=== PATIENT | male | born 2000 | race Two or more races ===

== ENCOUNTER 2024-10-23 03:36 | Emergency (ER) | payer BC, MEDICAID, SELFPAY ==
[2024-10-23 03:37] VITALS: BMI 23.1
[2024-10-23 04:03] VITALS: BP 141/92; PULSE 57; RESP 18; TEMP 36.8; O2SAT 98
--- NOTE | 2024-10-23 04:19 | PD.EDRME ---
Rapid Medical Screening Exam RME Arrival date/time: 10/23/24 03:36 23 yo m present to ED for c/o hematuria/discharge I have greeted and performed a focused initial assessment of this patient. A comprehensive ED assessment and evaluation of the patient, analysis of all test results, and completion of the medical decision making process will be conducted by additional ED providers. Chief Complaint: Medical Clearance Time Seen by Provider: 10/23/24 04:07 Vital signs: Vital Signs Temperature 98.3 F 10/23/24 04:03 Pulse Rate 57 L 10/23/24 04:03 Respiratory Rate 18 10/23/24 04:03 Blood Pressure 141/92 H 10/23/24 04:03 Pulse Oximetry (%) 98 10/23/24 04:03 Oxygen Delivery Method Room Air 10/23/24 04:03
[2024-10-23 05:25] LABS: Basophils # (Auto) 0.1 Thou/mm3 (0.0-0.2); Basophils % (Auto) 0 % (0-2.5); Eosinophils # (Auto) 0.3 Thou/mm3 (0.0-0.5); Eosinophils % (Auto) 2 % (0-10); Hematocrit 43.3 % (41.0-53.0); Hemoglobin 14.2 g/dL (13.5-16.0); Immature Granulocytes % (Auto) 0 % (0-0); Immature Granulocytes Auto 0.04 Thou/mm3 (0.00-0.00); Lymphocytes # (Auto) 3.7 Thou/mm3 (1.0-4.8); Lymphocytes % (Auto) 34 % (10-50); Mean Corpuscular HGB Conc 32.8 g/dl (31.0-37.0); Mean Corpuscular Hemoglobin 29.6 pg (25.0-35.0); Mean Corpuscular Volume 90 fL (80-100); Monocytes # (Auto) 0.8 Thou/mm3 (0.0-0.8); Monocytes % (Auto) 7 % (0-12); Neutrophils # (Auto) 6.3 Thou/mm3 (1.8-7.7); Neutrophils % (Auto) 56 % (37-80); Nucleated Red Blood Cell % 0 /100 WBC (0); Platelet Count 191 Thou/mm3 (140-440); White Blood Count 11.1 Thou/mm3 (3.8-10.6)
[2024-10-23 05:54] LABS: Alanine Aminotransferase 10 U/L (10-49); Albumin, Serum 4.4 gm/dL (3.5-5.0); Albumin/Globulin Ratio 1.8 (1.2-2.2); Alkaline Phosphatase 61 U/L (46-116); Anion Gap 7 (7-16); Aspartate Amino Transferase 14 U/L (0-34); BUN/Creatinine Ratio 13 Ratio (12-20); Bilirubin,Total 0.7 mg/dL (0.3-1.2); Blood Urea Nitrogen 13 mg/dL (9-23); Calcium 9.2 mg/dL (8.3-10.6); Calcium (Corrected) 9.2 mg/dL (8.5-10.1); Carbon Dioxide 29.4 mMol/L (20.0-31.0); Chloride 105 mMol/L (98-107); Estimated Creatinine Clearance 117.6 mL/min (>60); Globulin 2.5 gm/dL (2.3-3.5); Glucose 91 mg/dL (74-106); Osmolality,Calculated 281 (275-295); Sodium 141 mMol/L (136-145); Total Protein 6.9 gm/dL (5.7-8.2); eGFR > 60 See Note
[2024-10-23 06:25] LABS: Collection Type, Urine Voided; Squamous Epithelial Cell,Urine 0 /hpf (0-5)
[2024-10-23 07:12] VITALS: BP 145/99; PULSE 65; RESP 16; TEMP 36.9; O2SAT 99
[2024-10-23 07:21] LABS: Bilirubin,Urine Negative (Negative); Blood,Urine 2+ (Negative); Color,Urine Lt-Yellow (Lt Yel-Yel); Glucose, Urine Negative (Negative); Ketones,Urine Negative (Negative); Leukocyte Esterase,Urine Negative (Negative); Nitrite,Urine Negative (Negative); PH,Urine 6.5 (5.0-7.0); Protein,Urine 1+ (Neg - Trace); RBC,Urine 50 /hpf (0-3); Specific Gravity,Urine 1.026 (1.001-1.035); Urobilinogen,Urine Negative mg/dL (0.0-1.0); WBC,Urine 1 /hpf (0-5)
--- NOTE | 2024-10-23 07:22 | EDNOTE_ITS ---
<Statement entered by Lily Chen MD - 10/23/24 15:16> As co-signing physician, I was present and available for consult prn. I concur with the plan and care as documented by the midlevel provider. ED Male Genitalurinary RME/HPI General Chief complaint: Urogenital-Male Stated complaint: blood in urine Time Seen by Provider: 10/23/24 04:07 Source: patient Arrival date/time: 10/23/24 03:36 23-year-old male with no known medical history presents to the emergency room with a chief complaint of blood in the urine and scant white discharge x 1 day Mode of arrival: ambulatory Limitations: no limitations RME / HPI RME / HPI Narrative: 10/23/24 03:36 23 yo m present to ED for c/o hematuria/discharge I have greeted and performed a focused initial assessment of this patient. A comprehensive ED assessment and evaluation of the patient, analysis of all test results, and completion of the medical decision making process will be conducted by additional ED providers. Related Data Home Medications ?Medication ?Instructions ?Recorded ?Confirmed No Known Home Medications 05/09/1904/12 Allergies Allergy/AdvReac Type Severity Reaction Status Date / Time NKA* Allergy Uncoded 10/23/24 03:40 Review of Systems Review of Systems Systems Reviewed: All systems reviewed, normal except as documented Constitutional Constitutional: Reports system reviewed and no additional complaints, except as documented, Denies fatigue, Denies fever(s), Denies headache(s) and Denies weakness Eyes Eyes: Reports system reviewed and no additional complaints, except as documented, Denies blurry vision and Denies change in vision ENT Ears, Nose, Mouth, and Throat: Reports system reviewed and no additional complaints, except as documented, Denies otalgia, Denies headache(s), Denies nasal congestion, Denies throat swelling and Denies vertigo Cardiovascular Cardiovascular: Reports system reviewed and no additional complaints, except as documented, Denies chest pain, Denies dyspnea and Denies dyspnea on exertion Respiratory Respiratory: Reports system reviewed and no additional complaints, except as documented, Denies chest congestion, Denies cough, Denies dyspnea, Denies dyspnea on exertion and Denies wheezing Gastrointestinal Gastrointestinal: Reports system reviewed and no additional complaints, except as documented, Denies abdominal pain, Denies cramping, Denies nausea and Denies vomiting Genitourinary Genitourinary: Reports system reviewed and no additional complaints, except as documented, Denies dysuria, Reports hematuria and Reports penile discharge Musculoskeletal Musculoskeletal: Reports system reviewed and no additional complaints, except as documented and Denies back pain Integumentary/Breasts Skin/Breast: Reports system reviewed and no additional complaints, except as documented and Denies wounds Neurologic Neurologic: Reports system reviewed and no additional complaints, except as documented, Denies confusion, Denies headache(s), Denies lack of coordination, Denies vertigo and Denies weakness Psychiatric Psychiatric: Reports system reviewed and no additional complaints, except as documented, Denies anxiety, Denies confusion, Denies depression, Denies paranoia, Denies suicidal ideation and Denies tactile hallucinations Endocrine Endocrine: Reports system reviewed and no additional complaints, except as documented and Denies fatigue Hematologic/Lymphatic Hematologic/Lymphatic: Reports system reviewed and no additional complaints, except as documented and Denies lymphadenopathy Allergic/Immunologic Allergic/Immunologic: Reports system reviewed and no additional complaints, except as documented, Denies throat swelling, Denies urticaria and Denies wheezing Past Medical History Past Medical History CARDIAC: Negative Congestive Heart Failure RESPIRATORY: Negative Chronic Obstructive Pulmonary Disease (COPD) GENITOURINARY: Negative Renal Disease ENDOCRINE: Negative Diabetes Mellitus Type 1 or Diabetes Mellitus Type 2 Social History SMOKING STATUS: Never smoker SUBSTANCE USE: marijuana ED Exam General Limitations: Present no limitations General appearance: Present alert and in no apparent distress Head Head exam: Present atraumatic Eye Eye exam: Present normal appearance, PERRL and EOMI ENT ENT exam: Present normal exam, normal oropharynx and mucous membranes moist Neck Neck exam: Present normal inspection, full ROM and trachea midline Chest Chest inspection: Present normal inspection and symmetric chest wall rise Respiratory Respiratory exam: Present normal lung sounds bilaterally Cardiovascular Cardiovascular exam: Present regular rate, normal rhythm and normal heart sounds Abdominal Exam Abdominal exam: Present soft and normal bowel sounds exam: Present urethral discharge; Absent testicular tenderness, scrotal swelling, normal testicular lie or circumcised Extremities Exam Extremities exam: Present normal inspection and full ROM Back Exam Back exam: Present normal inspection and full ROM Neurological Exam Neurological exam: Present alert, oriented X3 and CN II-XII intact Psychiatric Psychiatric exam: Present normal affect and normal mood Skin Skin exam: Present warm, dry, intact and normal color Course Quality Measures none Orders Category Date Time Status CBC Stat Lab 10/23/24 04:35 Completed CMP [Comprehensive Metabolic Panel] Stat Lab 10/23/24 04:35 Completed Chlamydia/GC/TV - PCR Stat Lab 10/23/24 06:19 Completed UA [Urinalysis] Stat Lab 10/23/24 06:19 Completed cefTRIAXone [Rocephin] 1,000 mg Med 10/23/24 07:15 Discontinued Lidocaine 1% 20 ml [Xylocaine 1% 20 ML] 2.1 ml IM X1 Vital Signs Vital signs: Vital Signs Temperature 98.3 F 10/23/24 04:03 Pulse Rate 57 L 10/23/24 04:03 Respiratory Rate 18 10/23/24 04:03 Blood Pressure 141/92 H 10/23/24 04:03 Pulse Oximetry (%) 98 10/23/24 04:03 Oxygen Delivery Method Room Air 10/23/24 04:03 Urogenital - Male MDM Narrative MDM Narrative:: 23-year-old male with no known medical history presents to the emergency room with a chief complaint of blood in the urine and scant white discharge x 1 day Patient is hemodynamically stable and in no apparent distress Patient states this morning he had some blood in the urine as well as a small amount of white discharge. Patient states he denies any dysuria states that when he got his urine sample there was no more hematuria or any discharge. Patient states has been waiting here for over 3 hours and states he probably give his urine sample. I spoke to the patient and told him that if he does not want to wait I will give him a call with his STD results and I will treat him prophylactically. Patient agreed to this treatment plan and states he will not sign out. Patient was discharged and educated to follow-up with primary care provider in the next 24 to 48 hours and return to the emergency room for any evidence of worsening signs or symptoms Patient data External records reviewed:: [facility] previous records Clinical information provided by:: patient Social determinants that could affect healthcare access:: none Patient has the following chronic illnesses:: No chronic illness How is presenting disease/condition affected by chronic disease/condition?: no chronic disease Evaluation data The following diagnostics were reviewed and interpreted by me:: lab results and radiology exam(s) Lab and/or radiology exams considered but not ordered:: Labs and radiology exams considered and ordered Interpretation Summary: N/A Medications / Prescriptions Medications or Prescriptions considered but not ordered:: Medication given Medication administrations:: Medication Administration History Discontinued Medications Ceftriaxone Sodium 1,000 mg/ (Lidocaine HCl 2.1 ml) 0 mg IM X1 ONE Stop: 10/23/24 07:16 Last Admin: 10/23/24 07:24 Dose: 1,000 mg Documented By: LEYLA Medication given Consultations Consultation(s) initiated? (list below): No Diagnosis Urogenital Male Differential Diagnosis: urinary tract infection, epididymitis and other (Gonorrhea/chlamydia/hematuria) Most likely diagnosis given after review of the tests above:: Hematuria Admission Indicated Admission indicated?: not indicated Admission Request Was there a request for admission?: No Disposition Plan Disposition Plan: Discharge Discharge Attestation Discharge Attestation: The patient and all family members were given an opportunity to ask questions and understood the discharge instructions. Discharge instructions specifically effects, indications for sooner follow up or return to the emergency department, and the expected course of current diagnosis. Patient condition: Stable Discharge Plan Plan Patient Disposition: HOME (Self Care) Disposition Comment: Stable Prescriptions/Referrals Prescriptions/Med Rec: No Action No Known Home Medications Referrals: Porter Schneider MD [Primary Care Provider] - In 1 week Problem List Clinical Impression: Hematuria Patient/Caregiver Discharge Instructions Education Materials: What is Hematuria?, Hematuria: Possible Causes, ED Hematuria Additional Instructions: Please follow-up with your primary care provider in the next 24 to 48 hours. Your blood work was negative for any acute findings. For any evidence of worsening signs or symptoms return to the emergency room immediately Print Language: Nepali Stand Alone Forms: Jaclyn Award Info., Work/School Release, Patient Portal Info Letter NADYA/EVER Supervising Physician RODOLFO Supervising Physician: Dr. CHEN
[2024-10-23] MEDS: cefTRIAXone 1,000 MG, LIDOCAINE 1% 20 ML 2.1 ML IM (07:24)
[2024-10-23 07:28] LABS: Clarity,Urine Hazy (Clear/Hazy); Sperm,Urine Present
[2024-10-23 09:58] LABS: Chlamydia trachomatis PCR Negative (Not Detect); Neisseria Gonorrhoeae DNA PCR Negative (Not Detect); Trichomonas Negative (Negative)
== END 2024-10-23 07:43 | disposition home or self-care (01) ==
PROVIDERS: Physician Assistant; Emergency Provider Emergency Medicine; PCP Family Medicine
DX: R31.9 Hematuria, unspecified (principal)
CPT/HCPCS: 36415; 80053; 81001; 85025; 87491; 87591; 87661; 96372; 99283; J0696; J3490